=== PATIENT | female | born 1990 | race Caucasian/White ===

== ENCOUNTER 2017-10-20 18:43 | Emergency (ER) | payer OTHER ==
[2017-10-20 19:01] VITALS: TEMP 98.5
--- NOTE | 2017-10-20 19:07 | ED ---
General Adult HPI - General Chief complaint: Vaginal Bleeding Stated complaint: 7 weeks pg with spotting Time Seen by Provider: 10/20/17 19:03 Source: patient Mode of arrival: ambulatory Limitations: no limitations - History of Present Illness Initial comments: Stefania is a 27-year-old female proximately approximately 7 weeks who presents to the emergency department today for evaluation of vaginal spotting. Patient reports that she found she was a few weeks ago, she was previously being treated for a yeast infection with Diflucan which failed treatment she is now being treated with a vaginal suppository which she started last night. Patient reports that today she noted some vaginal spotting. Patient reports that in her previous [facility] which she carried to term she did not experience any vaginal bleeding during the so this became concerning for her. Patient does report a history of 3 elective abortions in the past, no spontaneous abortions. She denies any fevers, chills, chest pain, palpitations or shortness of breath. She does report occasional morning sickness with nausea and vomiting. However she states these are manageable and that she's been able to eat or drink. She does state that she has been taking her vitamins. She has established care with an OB but has not seen them for the first time yet. She is scheduled to see the OB in 2 weeks. - Related Data Home Medications Medication Instructions Recorded Confirmed [id number] Acid 1 cap PO HS 05/28/14 10/20/17 [-U Capsule (formulary)] Amoxicillin 875 mg PO Q12HR 10/20/17 10/20/17 Terconazole [Terazol 7] 1 applicator VAGINAL HS 10/20/17 10/20/17 Allergies Allergy/AdvReac Type Severity Reaction Status Date / Time No Known Allergies Allergy Verified 10/20/17 19:10 Review of Systems ROS Statement: Those systems with pertinent positive or pertinent negative responses have been documented in the HPI. ROS Other: All systems not noted in ROS Statement are negative. Constitutional: Denies: fever, chills ENT: Denies: throat pain Respiratory: Denies: cough, dyspnea Cardiovascular: Denies: chest pain, palpitations Endocrine: Denies: fatigue Gastrointestinal: Reports: nausea. Denies: abdominal pain, diarrhea, constipation Genitourinary: Reports: discharge, other (vaginal itching). Denies: urgency, dysuria, frequency Musculoskeletal: Denies: back pain Skin: Denies: rash Neurological: Denies: headache, weakness Psychiatric: Denies: anxiety, depression Hematological/Lymphatic: Denies: easy bleeding, easy bruising Past Medical History Past Medical History: No Reported History History of Any Multi-Drug Resistant Organisms: None Reported Past Surgical History: No Surgical Hx Reported Additional Past Surgical History / Comment(s): Dilation curettage 2 Past Anesthesia/Blood Transfusion Reactions: No Reported Reaction Past Psychological History: No Psychological Hx Reported Smoking Status: Current every day smoker Past Alcohol Use History: None Reported Past Drug Use History: None Reported General Exam Limitations: no limitations General appearance: alert, in no apparent distress Head exam: Present: atraumatic, normocephalic Eye exam: Present: normal appearance, PERRL ENT exam: Present: normal exam Neck exam: Present: normal inspection Respiratory exam: Present: normal lung sounds bilaterally, respiratory distress Cardiovascular Exam: Present: regular rate, normal rhythm GI/Abdominal exam: Present: soft, normal bowel sounds. Absent: distended, tenderness, guarding, rebound, rigid External exam: Present: normal external exam Speculum exam: Present: vaginal discharge, vaginal bleeding. Absent: cervical discharge, foreign body, tissue, laceration By manual exam: Present: cervical motion tenderness Back exam: Present: normal inspection Neurological exam: Present: alert, oriented X3 Psychiatric exam: Present: normal affect, normal mood Skin exam: Present: warm, dry Course Vital Signs 10/20/17 18:58 Temperature 98.5 F Pulse Rate 105 H Respiratory 20 Rate Blood Pressure 130/80 O2 Sat by Pulse 98 Oximetry - Reevaluation(s) Reevaluation #1: Patint was updated that she is positive for trichamonas, risks and benefits of treatment were discussed and patient agreed to treatment with 2 g of by mouth Flagyl. In addition the patient agreed to being treated for possible co- infections of gonorrhea or chlamydia with Rocephin and azithromycin. I advised the patient that she will be given multiple pills to take, I gave her jose crackers, putting and juice so that she does not have to take these on an empty stomach. 10/20/17 21:09 Medical Decision Making - Medical Decision Making She was seen and evaluated, history was obtained from the patient Multiple weeks of vaginal pruritus, failed outpatient therapy with over-the- counter Monistat, prescription Diflucan and now being treated with vaginal suppository for suspected yeast infection. Currently approximately 7 weeks with vaginal spotting Exam with scant vaginal discharge, some vaginal erythema. Exam is limited by the suppository cream that was placed in the vagina earlier. Labs reveal beta hCG greater than 3000, ultrasound reveals a single live intrauterine at 6 weeks gestation which is consistent with patient's expectations Blood Vaginal swab is positive for Trichomonas, she was updated on this. I advised the patient that I would recommend treatment for possible co-infections with gonorrhea and chlamydia. Patient is agreeable. At this time I will treat with IM Rocephin, no Flagyl and azithromycin. She was given jose crackers and indeed prior to taking the medications that she does not have to take them on an empty stomach. Patient was advised that she should not be sexually active with anybody for 7 days, she should follow-up with her OB for repeat testing. Her partner or partners need to be tested and treated as well. Patient expressed understanding of this. - Lab Data Result diagrams: 10/20/17 19:31 10/20/17 19:31 Lab Results 10/20/17 10/20/17 10/20/17 Range/Units 19:31 19:31 19:31 WBC 9.5 (3.8-10.6) k/uL RBC 4.00 (3.80-5.40) m/uL Hgb 12.6 (11.4-16.0) gm/dL Hct 36.5 (34.0-46.0) % MCV 91.2 (80.0-100.0) fL MCH 31.5 (25.0-35.0) pg MCHC 34.5 (31.0-37.0) g/dL RDW 12.2 (11.5-15.5) % Plt Count 258 (150-450) k/uL Neutrophils % 66 % Lymphocytes % 26 % Monocytes % 6 % Eosinophils % 1 % Basophils % 0 % Neutrophils # 6.2 (1.3-7.7) k/uL Lymphocytes # 2.4 (1.0-4.8) k/uL Monocytes # 0.5 (0-1.0) k/uL Eosinophils # 0.1 (0-0.7) k/uL Basophils # 0.0 (0-0.2) k/uL Sodium 138 (137-145) mmol/L Potassium 3.9 (3.5-5.1) mmol/L Chloride 105 (98-107) mmol/L Carbon Dioxide 26 (22-30) mmol/L Anion Gap 7 mmol/L BUN 8 (7-17) mg/dL Creatinine 0.70 (0.52-1.04) mg/dL Est GFR (MDRD) Af Amer >60 (>60 ml/min/1.73 sqM) Est GFR (MDRD) Non-Af >60 (>60 ml/min/1.73 sqM) Glucose 81 (74-99) mg/dL Calcium 9.2 (8.4-10.2) mg/dL HCG, Quant 3067.1 mIU/mL Urine Color Urine Appearance (Clear) Urine pH (5.0-8.0) Ur Specific [place] (1.001-1.035) Urine Protein (Negative) Urine Glucose (UA) (Negative) Urine Ketones (Negative) Urine Blood (Negative) Urine Nitrite (Negative) Urine Bilirubin (Negative) Urine Urobilinogen (<2.0) mg/dL Ur Leukocyte Esterase (Negative) Trichomonas Ag (Rapid) (Negative) Blood Type O Positive Blood Type Recheck No Antibody Screen NEGATIVE Spec Expiration Date 10/23/2017 - 233010/20/17 10/20/17 Range/Units 19:35 19:43 WBC (3.8-10.6) k/uL RBC (3.80-5.40) m/uL Hgb (11.4-16.0) gm/dL Hct (34.0-46.0) % MCV (80.0-100.0) fL MCH (25.0-35.0) pg MCHC (31.0-37.0) g/dL RDW (11.5-15.5) % Plt Count (150-450) k/uL Neutrophils % % Lymphocytes % % Monocytes % % Eosinophils % % Basophils % % Neutrophils # (1.3-7.7) k/uL Lymphocytes # (1.0-4.8) k/uL Monocytes # (0-1.0) k/uL Eosinophils # (0-0.7) k/uL Basophils # (0-0.2) k/uL Sodium (137-145) mmol/L Potassium (3.5-5.1) mmol/L Chloride (98-107) mmol/L Carbon Dioxide (22-30) mmol/L Anion Gap mmol/L BUN (7-17) mg/dL Creatinine (0.52-1.04) mg/dL Est GFR (MDRD) Af Amer (>60 ml/min/1.73 sqM) Est GFR (MDRD) Non-Af (>60 ml/min/1.73 sqM) Glucose (74-99) mg/dL Calcium (8.4-10.2) mg/dL HCG, Quant mIU/mL Urine Color Yellow Urine Appearance Clear (Clear) Urine pH 7.0 (5.0-8.0) Ur Specific [place] 1.012 (1.001-1.035) Urine Protein Negative (Negative) Urine Glucose (UA) Negative (Negative) Urine Ketones Negative (Negative) Urine Blood Negative (Negative) Urine Nitrite Negative (Negative) Urine Bilirubin Negative (Negative) Urine Urobilinogen 3.0 (<2.0) mg/dL Ur Leukocyte Esterase Negative (Negative) Trichomonas Ag (Rapid) Positive H (Negative) Blood Type Blood Type Recheck Antibody Screen Spec Expiration Date Disposition Clinical Impression: Vaginal bleeding in , Trichomonas vaginalis (TV) infection Disposition: HOME SELF-CARE Condition: Good Instructions: Threatened Miscarriage (ED), Sexually Transmitted Diseases (ED), Trichomoniasis (ED) Referrals: Jack Everett DO [Primary Care Provider] - 1-2 days Time of Disposition: 21:40
[2017-10-20 19:42] LABS: Basophils % (A) 0 %; CH 31.9; CHCM 35.1; Eosinophils # (A) 0.1 k/uL (0-0.7); Eosinophils % (A) 1 %; HCT 36.5 % (34.0-46.0); HDW 2.54; HGB 12.6 gm/dL (11.4-16.0); Luc # (Auto) 0.15; Luc % (Auto) 2; Lymphocytes # (A) 2.4 k/uL (1.0-4.8); Lymphocytes % (A) 26 %; MCH 31.5 pg (25.0-35.0); MCHC 34.5 g/dL (31.0-37.0); MCV 91.2 fL (80.0-100.0); Mean Platelet Volume 7.1; Monocytes # (A) 0.5 k/uL (0-1.0); Monocytes % (A) 6 %; Neutrophils # (A) 6.2 k/uL (1.3-7.7); Neutrophils % (A) 66 %; RDW 12.2 % (11.5-15.5); WBC 9.5 k/uL (3.8-10.6); WBC (Perox) 9.43
[2017-10-20 19:54] LABS: Anion Gap 7 mmol/L; Blood Urea Nitrogen 8 mg/dL (7-17); Calcium 9.2 mg/dL (8.4-10.2); Carbon Dioxide 26 mmol/L (22-30); Chloride 105 mmol/L (98-107); Glucose 81 mg/dL (74-99); Non-African American GFR(MDRD) >60 (>60 ml/min/1.73 sqM); Potassium 3.9 mmol/L (3.5-5.1); Sodium 138 mmol/L (137-145)
[2017-10-20 20:02] LABS: Appearance,Urine Clear (Clear); Bilirubin,Urine Negative (Negative); Glucose,Urine (UA) Negative (Negative); Ketones,Urine Negative (Negative); Leukocyte Esterase,Urine Negative (Negative); Nitrite,Urine Negative (Negative); Protein,Urine Negative (Negative); Specific Gravity,Urine 1.012 (1.001-1.035); UA Billing (MACRO vs. MICRO) CHEM
--- NOTE | 2017-10-20 20:24 | US ---
EXAMINATION TYPE: US OB <= 14 wk transvag DATE OF EXAM: 10/20/2017 COMPARISON: NONE CLINICAL HISTORY: pain/ cramping with vaginal bleeding (spotting). Recently being treated for yeast infection. EXAM PERFORMED: Transvaginal (TV) and Transabdominal (TA) EXAM MEASUREMENTS: GESTATIONAL AGE / DATING Physician Established: Not yet established Dates by LMP: . (7 weeks/3 days) EDC: 06/05/2018 Dates by First Scan: No previous this is first scan Dates by Current Scan for: (6 weeks/0 days) EDC: 06/15/2018 MATERNAL ANATOMY Uterus: 8.2 x 5.0 x 6.2 cm; Anteverted, appears wnl Right Ovary: 3.1 x 1.9 x 1.9 cm; appears to have complex area with peripheral flow measuring 2.2 x 1.7 x 1.8 cm Left Ovary: 2.6 x 1.8 x 1.5 cm; appears wnl Post CDS / Adnexa: Appears to have traces of fluid near cervix Presence of free fluid: Appears to have traces of fluid near cervix Presence of corpus luteal cyst: Right ovary measuring approximately 2.2 x 1.7 x 1.8 cm Presence of subchorionic bleed: No GESTATION / SURVEY CRL: 0.4 cm (6 weeks/0 days) MSD: 0.8 cm (OOR ) Yolk Sac (normal less than 6mm): 2 mm Heart Rate: 130 bpm Rhythm: Normal IUP: Viable IUP Date of LMP: 08/29/2017 IMPRESSION: The ultrasound gestational age is 6 weeks. I see no comping process. MTDD
[2017-10-20] MEDS ORDERED: cefTRIAXone 1,000 MG VIAL (IM USE) IM STA (21:02)
[2017-10-20] MEDS ORDERED: metroNIDAZOLE 500 MG TAB PO STA (21:02)
[2017-10-20] MEDS ORDERED: AZITHROMYCIN 500 MG TAB PO STA (21:03)
[2017-10-20] MEDS ORDERED: cefTRIAXone 250 MG VIAL IM STA (21:26)
[2017-10-20 21:46] VITALS: BP 110/56; PULSE 87; RESP 18
== END 2017-10-20 22:10 | disposition home or self-care (01) ==
LOC: EC 18:43
DX: O98.311 Other infections with a predominantly sexual mode of transmission complicating pregnancy, first trimester (principal); A59.01 Trichomonal vulvovaginitis; O20.9 Hemorrhage in early pregnancy, unspecified; Z3A.01 Less than 8 weeks gestation of pregnancy; O99.331 Smoking (tobacco) complicating pregnancy, first trimester; F17.200 Nicotine dependence, unspecified, uncomplicated; Z79.899 Other long term (current) drug therapy
CPT/HCPCS: 36415; 86900; 86901; 80048; 87591; 87491; 85025; 86850; 81003; 84702; 87808; 87070; 87086; 87205; 76801; 99284; 96372; J0696; 76817

== ENCOUNTER 2017-12-29 10:56 | Emergency (ER) | payer BC ==
[2017-12-29 11:06] VITALS: RESP 18
--- NOTE | 2017-12-29 11:41 | ED ---
General Adult HPI - General Chief complaint: Back Pain/Injury Stated complaint: Back pain Time Seen by Provider: 12/29/17 11:31 Source: patient, RN notes reviewed Mode of arrival: ambulatory Limitations: no limitations - History of Present Illness Initial comments: Patient's a 27-year-old female who presents emergency room today with chief complaint of some left-sided back pain that started last night when she was going to bed. She does not that today she was at work felt some chills. States she checked her temperature had a low-grade temp took some ibuprofen. She does not that she's noticed a stronger odor with the urine. She denies any pain. States back pain is not worse with movements. Denies any injury or trauma. Denies any other complaints or symptoms. Patient denies any recent fever, chills, shortness of breath, chest pain, abdominal pain, nausea or vomiting, numbness or tingling, dysuria or hematuria, constipation or diarrhea, headaches or visual changes, or any other complaints. - Related Data Previous Rx's Medication Instructions Recorded Acetaminophen-Codeine 300-30mg 1 - 2 tab PO Q4H PRN #40 tablet 11/11/17 [Tylenol #3] Ibuprofen [Motrin] 600 mg PO Q6HR PRN #40 tab 11/11/17 Ciprofloxacin HCl [Cipro] 500 mg PO Q12HR #20 day 12/29/17 Allergies Allergy/AdvReac Type Severity Reaction Status Date / Time No Known Allergies Allergy Verified 12/29/17 11:06 Review of Systems ROS Statement: Those systems with pertinent positive or pertinent negative responses have been documented in the HPI. ROS Other: All systems not noted in ROS Statement are negative. Past Medical History Past Medical History: No Reported History History of Any Multi-Drug Resistant Organisms: None Reported Past Surgical History: No Surgical Hx Reported Additional Past Surgical History / Comment(s): Elective 2, wisdom teeth removed Past Anesthesia/Blood Transfusion Reactions: Previous Problems w/ Anesthesia Additional Past Anesthesia/Blood Transfusion Reaction / Comment(s): states woke up crying and very confused Past Psychological History: No Psychological Hx Reported Smoking Status: Current every day smoker Past Alcohol Use History: Rare Past Drug Use History: None Reported - Past Family History Mother Family Medical History: Cancer General Exam - General Exam Comments Initial Comments: General: The patient is awake and alert, in no distress, and does not appear acutely ill. Eye: Pupils are equal, round and reactive to light, extra-ocular movements are intact. No nystagmus. There is normal conjunctiva bilaterally. No signs of icterus. Ears, nose, mouth and throat: There are moist mucous membranes and no oral lesions. Neck: The neck is supple, there is no tenderness or JVD. Cardiovascular: There is a regular rate and rhythm. No murmur, rub or gallop is appreciated. Respiratory: Lungs are clear to auscultation, respirations are non-labored, breath sounds are equal. No wheezes, stridor, rales, or rhonchi. Gastrointestinal: Soft, non-distended, non-tender abdomen without masses or organomegaly noted. There is no rebound or guarding present. No CVA tenderness. Bowel sounds are unremarkable. Musculoskeletal: Normal ROM, no tenderness. Strength 5/5. Sensation intact. Pulses equal bilaterally 2+. Neurological: A&O x 3. CN II-XII intact, There are no obvious motor or sensory deficits. Coordination appears grossly intact. Speech is normal. Skin: Skin is warm and dry and no rashes or lesions are noted. Psychiatric: Cooperative, appropriate mood & affect, normal judgment. Limitations: no limitations Course Vital Signs 12/29/17 11:04 Temperature 99.2 F Pulse Rate 111 H Respiratory 18 Rate Blood Pressure 103/55 O2 Sat by Pulse 98 Oximetry Medical Decision Making - Medical Decision Making Patient's urinalysis reviewed and does show evidence for urinary tract infection. Patient will be given a shot of Rocephin here in emergency room. Patient's vitals are stable. No fever here in emergency room. Patient advised to return if symptoms increase or worsen. Advised follow-up the family doctor for repeat urinalysis. Patient states understanding and is in agreement. - Lab Data Lab Results 12/29/17 12/29/17 Range/Units 11:45 11:45 Urine Color Yellow Urine Appearance Cloudy H (Clear) Urine pH 6.5 (5.0-8.0) Ur Specific [place] 1.014 (1.001-1.035) Urine Protein 1+ H (Negative) Urine Glucose (UA) Negative (Negative) Urine Ketones Negative (Negative) Urine Blood Moderate H (Negative) Urine Nitrite Positive H (Negative) Urine Bilirubin Negative (Negative) Urine Urobilinogen <2.0 (<2.0) mg/dL Ur Leukocyte Esterase Large H (Negative) Urine RBC 6 H (0-5) /hpf Urine WBC >182 H (0-5) /hpf Ur Squamous Epith Cells 1 (0-4) /hpf Amorphous Sediment Few H (None) /hpf Urine Bacteria Rare H (None) /hpf Urine Mucus Moderate H (None) /hpf Urine HCG, Qual Not Detected (Not Detectd) Disposition Clinical Impression: Urinary tract infection Disposition: HOME SELF-CARE Condition: Good Instructions: Urinary Tract Infection in Women (ED) Additional Instructions: Please use medication as discussed. Please follow-up with family doctor in the next 2 days of symptoms have not improved. Please return to emergency room if the symptoms increase or worsen or for any other concerns. Prescriptions: Ciprofloxacin HCl [Cipro] 500 mg PO Q12HR #20 day Referrals: Jack Everett DO [Primary Care Provider] - 1-2 days Time of Disposition: 12:14
[2017-12-29 12:05] LABS: Amorphous Sediment,Urine Few /hpf; Appearance,Urine Cloudy (Clear); Bacteria,Urine Rare /hpf; Bilirubin,Urine Negative (Negative); Blood,Urine Moderate (Negative); Color,Urine Yellow; Glucose,Urine (UA) Negative (Negative); Ketones,Urine Negative (Negative); Leukocyte Esterase,Urine Large (Negative); Mucus,Urine Moderate /hpf; Nitrite,Urine Positive (Negative); PH, Urine 6.5 (5.0-8.0); Protein,Urine 1+ (Negative); RBC,Urine 6 /hpf (0-5); Specific Gravity,Urine 1.014 (1.001-1.035); Squamous Epithelial Cell,Urine 1 /hpf (0-4); Urobilinogen,Urine <2.0 mg/dL (<2.0); WBC,Urine >182 /hpf (0-5)
[2017-12-29] MEDS ORDERED: cefTRIAXone 1,000 MG VIAL (IM USE) IM STA (12:13)
[2017-12-29 12:45] VITALS: BP 104/55; PULSE 97; TEMP 98.5
== END 2017-12-29 12:45 | disposition home or self-care (01) ==
LOC: EC 10:56
DX: N39.0 Urinary tract infection, site not specified (principal); F17.200 Nicotine dependence, unspecified, uncomplicated
CPT/HCPCS: 81001; 81025; 87086; 99283; 96372; J0696; 87077; 87186

== ENCOUNTER 2018-01-20 07:16 | Emergency (ER) | payer BC ==
[2018-01-20 07:19] VITALS: RESP 18; TEMP 98.3
[2018-01-20 07:54] LABS: Appearance,Urine Clear (Clear); Bilirubin,Urine Negative (Negative); Blood,Urine Trace (Negative); Color,Urine Light Yellow; Glucose,Urine (UA) Negative (Negative); Ketones,Urine Negative (Negative); Leukocyte Esterase,Urine Negative (Negative); Mucus,Urine Rare /hpf; Nitrite,Urine Negative (Negative); Protein,Urine Negative (Negative); RBC,Urine 2 /hpf (0-5); Specific Gravity,Urine 1.006 (1.001-1.035); Squamous Epithelial Cell,Urine <1 /hpf (0-4); Urobilinogen,Urine <2.0 mg/dL (<2.0); WBC,Urine 3 /hpf (0-5)
[2018-01-20 08:06] LABS: ALT 109 U/L (9-52); AST 33 U/L (14-36); Albumin 4.4 g/dL (3.5-5.0); Alkaline Phosphatase 72 U/L (38-126); Anion Gap 12 mmol/L; Blood Urea Nitrogen 11 mg/dL (7-17); Calcium 9.8 mg/dL (8.4-10.2); Carbon Dioxide 25 mmol/L (22-30); Chloride 104 mmol/L (98-107); Glucose 110 mg/dL (74-99); Potassium 3.8 mmol/L (3.5-5.1); Sodium 141 mmol/L (137-145); Total Bilirubin 0.2 mg/dL (0.2-1.3)
[2018-01-20] MEDS ORDERED: cefTRIAXone 250 MG VIAL IM STA (08:06)
[2018-01-20] MEDS ORDERED: AZITHROMYCIN 500 MG TAB PO STA (08:06)
[2018-01-20] MEDS ORDERED: metroNIDAZOLE 500 MG TAB PO STA (08:06)
--- NOTE | 2018-01-20 08:13 | ED ---
Female Urogenital HPI - General Chief complaint: Urogenital Stated complaint: Female gu Time Seen by Provider: 01/20/18 07:20 Source: patient Mode of arrival: ambulatory Limitations: no limitations - History of Present Illness Initial comments: This is a 27-year-old female who presents emergency department for STD exposure. The patient states that her and her boyfriend were involved with a 3 similar thing other female. There are updated that the patient may have contracted a sexual transmitted disease and possible hepatitis C. She is unsure of the sexual transmitted disease however. She was concerned because of the exposure. She does admit to a slightly increased amount of vaginal discharge that she describes as white however no other symptoms. No vaginal pain. No pelvic pain. No fevers or chills. No joint aching. No other complaints at this time. Last Menstrual Period: 12/25/17 - Related Data Previous Rx's Medication Instructions Recorded Ibuprofen [Motrin] 600 mg PO Q6HR PRN #40 tab 11/11/17 Ciprofloxacin HCl [Cipro] 500 mg PO Q12HR #20 day 12/29/17 Allergies Allergy/AdvReac Type Severity Reaction Status Date / Time No Known Allergies Allergy Verified 01/20/18 07:19 Review of Systems ROS Statement: Those systems with pertinent positive or pertinent negative responses have been documented in the HPI. ROS Other: All systems not noted in ROS Statement are negative. Past Medical History Past Medical History: No Reported History History of Any Multi-Drug Resistant Organisms: None Reported Past Surgical History: No Surgical Hx Reported Additional Past Surgical History / Comment(s): Elective 2, wisdom teeth removed Past Anesthesia/Blood Transfusion Reactions: Previous Problems w/ Anesthesia Additional Past Anesthesia/Blood Transfusion Reaction / Comment(s): states woke up crying and very confused Past Psychological History: No Psychological Hx Reported Smoking Status: Current every day smoker Past Alcohol Use History: Rare Past Drug Use History: None Reported - Past Family History Mother Family Medical History: Cancer General Exam - General Exam Comments Initial Comments: Constitutional: Awake alert Appears comfortable Head: Normocephalic atraumatic Eyes: no conjunctival injection No scleral icterus EOMI Neck: No JVD Supple Heart: Regular rate rhythm normal S1-S2 no murmurs Lungs: Clear to auscultation bilaterally No wheezing No rales Abdomen: Soft nondistended nontender : The patient deferred and stated she did not want a pelvic exam Extremities: Non edematous DP pulses intact Radial pulses intact Neuro: A&Ox3 No focal neurologic deficits Psych: Appropriate mood and affect Limitations: no limitations Course Vital Signs 01/20/18 01/20/18 07:17 08:31 Temperature 98.3 F Pulse Rate 108 H 103 H Respiratory 18 18 Rate Blood Pressure 125/74 128/66 O2 Sat by Pulse 100 97 Oximetry Medical Decision Making - Medical Decision Making Is a 27-year-old female who presents emergency department for STD exposure. She had a urine sample performed that was unremarkable. LFTs were unremarkable as well. Urine chlamydia and gonorrhea were sent. Were unable to obtain a Trichomonas sample because the patient declined pelvic examination. She opted for treatment of sexually transmitted diseases. The patient was given Rocephin , azithromycin, and metronidazole. Was told that someone would call for positive result. Otherwise she could call in for results as well. Return if she has worsening symptoms. No sex for 3 weeks. - Lab Data Result diagrams: 01/20/18 07:40 Lab Results 01/20/18 01/20/18 01/20/18 Range/Units 07:40 07:40 07:40 Sodium 141 (137-145) mmol/L Potassium 3.8 (3.5-5.1) mmol/L Chloride 104 (98-107) mmol/L Carbon Dioxide 25 (22-30) mmol/L Anion Gap 12 mmol/L BUN 11 (7-17) mg/dL Creatinine 0.70 (0.52-1.04) mg/dL Est GFR (MDRD) Af Amer >60 (>60 ml/min/1.73 sqM) Est GFR (MDRD) Non-Af >60 (>60 ml/min/1.73 sqM) Glucose 110 H (74-99) mg/dL Calcium 9.8 (8.4-10.2) mg/dL Total Bilirubin 0.2 (0.2-1.3) mg/dL AST 33 (14-36) U/L ALT 109 H (9-52) U/L Alkaline Phosphatase 72 (38-126) U/L Total Protein 7.0 (6.3-8.2) g/dL Albumin 4.4 (3.5-5.0) g/dL Urine Color Light Yellow Urine Appearance Clear (Clear) Urine pH 7.0 (5.0-8.0) Ur Specific [place] 1.006 (1.001-1.035) Urine Protein Negative (Negative) Urine Glucose (UA) Negative (Negative) Urine Ketones Negative (Negative) Urine Blood Trace H (Negative) Urine Nitrite Negative (Negative) Urine Bilirubin Negative (Negative) Urine Urobilinogen <2.0 (<2.0) mg/dL Ur Leukocyte Esterase Negative (Negative) Urine RBC 2 (0-5) /hpf Urine WBC 3 (0-5) /hpf Ur Squamous Epith Cells <1 (0-4) /hpf Urine Mucus Rare H (None) /hpf Urine HCG, Qual Not Detected (Not Detectd) Disposition Clinical Impression: STD exposure Disposition: HOME SELF-CARE Condition: Stable Instructions: Sexually Transmitted Diseases (ED) Referrals: Jack Everett DO [Primary Care Provider] - 1-2 days
[2018-01-20 08:32] VITALS: BP 128/66; PULSE 103
[2018-01-21 15:53] LABS: Chlamydia trachomatis rRNA DETECTED (Not detected); Neisseria gonorrhoeae rRNA Not detected (Not detected)
== END 2018-01-20 08:31 | disposition home or self-care (01) ==
LOC: EC 07:16
DX: Z20.2 Contact with and (suspected) exposure to infections with a predominantly sexual mode of transmission (principal); F17.200 Nicotine dependence, unspecified, uncomplicated
CPT/HCPCS: 36415; 86803; 80053; 87591; 87491; 81001; 81025; 99283; 96372; J0696

== ENCOUNTER 2018-03-01 17:58 | Emergency (ER) | payer BC ==
[2018-03-01] MEDS ORDERED: RX INFO: IV CONTRAST WAS GIVEN 1 EACH MISC MISCELLANE PRN (18:18)
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
[2018-03-01 18:54] LABS: Amorphous Sediment,Urine Occasional /hpf; Appearance,Urine Cloudy (Clear); Bilirubin,Urine Negative (Negative); Blood,Urine Negative (Negative); Color,Urine Yellow; Glucose,Urine (UA) Negative (Negative); Ketones,Urine Negative (Negative); Leukocyte Esterase,Urine Negative (Negative); Mucus,Urine Rare /hpf; Nitrite,Urine Negative (Negative); PH, Urine 6.5 (5.0-8.0); Protein,Urine Negative (Negative); Specific Gravity,Urine 1.016 (1.001-1.035); Squamous Epithelial Cell,Urine <1 /hpf (0-4); WBC,Urine 1 /hpf (0-5)
[2018-03-01 19:01] LABS: Basophils % (A) 0 %; Eosinophils # (A) 0.2 k/uL (0-0.7); Eosinophils % (A) 3 %; HCT 42.9 % (34.0-46.0); HGB 13.7 gm/dL (11.4-16.0); Lymphocytes # (A) 2.3 k/uL (1.0-4.8); Lymphocytes % (A) 30 %; MCH 29.1 pg (25.0-35.0); Mean Platelet Volume 7.4; Monocytes # (A) 0.6 k/uL (0-1.0); Monocytes % (A) 8 %; Neutrophils # (A) 4.3 k/uL (1.3-7.7); Neutrophils % (A) 57 %; Platelet Count 274 k/uL (150-450); RBC 4.71 m/uL (3.80-5.40); RDW 13.6 % (11.5-15.5); WBC 7.7 k/uL (3.8-10.6)
[2018-03-01 19:10] LABS: Partial Thromboplastin Time 27.8 sec (22.0-30.0); Prothrombin Time 9.9 sec (9.0-12.0)
[2018-03-01 19:17] LABS: ALT 728 U/L (9-52); AST 353 U/L (14-36); Albumin 3.8 g/dL (3.5-5.0); Alkaline Phosphatase 161 U/L (38-126); Anion Gap 12 mmol/L; Blood Urea Nitrogen 10 mg/dL (7-17); Calcium 9.6 mg/dL (8.4-10.2); Carbon Dioxide 28 mmol/L (22-30); Chloride 99 mmol/L (98-107); Glucose 105 mg/dL (74-99); Potassium 4.2 mmol/L (3.5-5.1); Sodium 139 mmol/L (137-145); Total Bilirubin 2.2 mg/dL (0.2-1.3); Total Protein 6.6 g/dL (6.3-8.2)
--- NOTE | 2018-03-01 19:38 | XR ---
EXAMINATION TYPE: XR ribs LT w pa chest xray DATE OF EXAM: 03/01/2018 COMPARISON: NONE HISTORY: Left-sided rib pain TECHNIQUE: 5 views FINDINGS: Heart and mediastinum are normal. Lungs are clear of infiltrate. There is no sign of pleura l effusion or pneumothorax. There are nondisplaced fractures of the left eighth ninth and 10th ribs. IMPRESSION: Acute multiple left rib fractures. Normal heart.
[2018-03-01 19:41] LABS: Amylase 52 U/L (30-110); Lipase 47 U/L (23-300)
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
[2018-03-01 21:19] LABS: Hepatitis A AB IgM Index 0.01; Hepatitis A Antibody IgM NEGATIVE
[2018-03-01 21:20] LABS: Amphetamine Screen,Urine Detected (NotDetected); Barbiturate Screen,Urine Not Detected (NotDetected); Benzodiazepines Screen,Urine Not Detected (NotDetected); Cocaine Screen,Urine Not Detected (NotDetected); Methadone Screen, Urine Not Detected (NotDetected); Opiate Screen,Urine Not Detected (NotDetected); Oxycodone Screen, Urine Not Detected (NotDetected); Phencyclidine Screen,Urine Not Detected (NotDetected); Tricyclic Antidepressant,Urine Not Detected (NotDetected); Urn Cannabinoid Scrn Detected (NotDetected)
[2018-03-01] MEDS ORDERED: SODIUM CHLORIDE 0.9% 1,000 ML IV ONE (22:16)
[2018-03-01] MEDS ORDERED: MORPHINE SULFATE/PF 10MG/10ML VL IVP STA (22:56)
[2018-03-01 23:06] LABS: Hepatitis B Core IgM Non-Reactive (Non-Reactive)
--- NOTE | 2018-03-01 23:41 | US ---
EXAMINATION TYPE: US abdomen limited DATE OF EXAM: 03/01/2018 COMPARISON: NONE CLINICAL HISTORY: Elevated Liver Enzymes; Hyperbilirubinemai. Pt c/o left sided pain due to 3 broken ribs. EXAM MEASUREMENTS: Liver Length: 14.5 cm Gallbladder Wall: 0.3 cm CBD: 0.2 cm Right Kidney: 10.7 x 3.6 x 4.9 cm Limited due to bowel gas, pt eating prior to exam, and inability to roll complete LLD due to pt broke n ribs on left side. Pancreas: wnl Liver: wnl Gallbladder: echogenic foci seen within gb ?cholelithiasis versus polyps Evidence for sonographic Raymond's sign: No CBD: wnl Right Kidney: Slightly dilated right renal pelvis IMPRESSION: Multiple small gallstones. No dilated ducts.
[2018-03-01 23:51] VITALS: BP 113/65; PULSE 85; RESP 16; TEMP 97.9
== END 2018-03-01 23:57 | disposition home or self-care (01) ==
LOC: EC 17:58
DX: S22.42XA Multiple fractures of ribs, left side, initial encounter for closed fracture (principal); K75.9 Inflammatory liver disease, unspecified; E80.6 Other disorders of bilirubin metabolism; K80.80 Other cholelithiasis without obstruction; R05 Cough; F17.200 Nicotine dependence, unspecified, uncomplicated; Y09 Assault by unspecified means; Y92.009 Unspecified place in unspecified non-institutional (private) residence as the place of occurrence of the external cause
CPT/HCPCS: 36415; 80053; 80074; 82150; 83690; 85025; 85610; 85730; 81001; 81025; 80306; 71101; 76705; 74177; 99284; 96374; 96361; Q9967; J2270

== ENCOUNTER 2018-04-09 14:18 | Emergency (ER) | payer BC, OTHER ==
[2018-04-09 14:36] VITALS: RESP 18
[2018-04-09] MEDS ORDERED: ONDANSETRON ODT 4 MG TAB PO STA (15:25)
[2018-04-09] MEDS ORDERED: LORazepam 1 MG TAB PO STA (15:25)
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
[2018-04-09 17:18] VITALS: BP 137/78; PULSE 77; TEMP 98.3
== END 2018-04-09 17:00 | disposition home or self-care (01) ==
LOC: EC 14:18
DX: F41.9 Anxiety disorder, unspecified (principal); F30.9 Manic episode, unspecified; R45.6 Violent behavior; S00.11XD Contusion of right eyelid and periocular area, subsequent encounter; F17.200 Nicotine dependence, unspecified, uncomplicated; Y09 Assault by unspecified means
CPT/HCPCS: 82075; 99284

== ENCOUNTER → 2019-03-18 | Outpatient (CLI) | payer OTHER ==
[2019-03-18 14:08] LABS: Glucose 3 Hour, Gest 99 mg/dL
== END ==
LOC: LABWHC1 08:52
PROVIDERS: ATTEND Obstetrics & Gynecology
DX: O99.810 Abnormal glucose complicating pregnancy (principal); Z3A.00 Weeks of gestation of pregnancy not specified
CPT/HCPCS: 36415; 82951; 82952

== ENCOUNTER → 2019-12-30 | Outpatient (CLI) | payer OTHER ==
--- NOTE | 2019-12-30 09:12 | US ---
EXAMINATION TYPE: US abdomen complete DATE OF EXAM: 12/30/2019 COMPARISON: CT dated 03/01/2019 CLINICAL HISTORY: R94.5 abn results of liver func. elevated liver enzymes, nausea, LUQ pain EXAM MEASUREMENTS: Liver Length: 14.9 cm Gallbladder Wall: 0.3 cm CBD: 0.3 cm Spleen: 9.4 cm Right Kidney: 10.4 x 3.9 x 5.5 cm Left Kidney: 10.7 x 4.8 x 4.8 cm Pancreas: wnl Liver: wnl Gallbladder: appears filled with stones versus adjacent bowel when correlated with the prior CT of 2 018. Evidence for sonographic Raymond's sign: yes CBD: wnl Spleen: wnl Right Kidney: no evidence of hydronephrosis or mass Left Kidney: no evidence of hydronephrosis or mass Upper IVC: wnl Abd Aorta: wnl The liver is homogenous. The intrahepatic portion of the IVC and proximal abdominal aorta are within normal limits. Common bile duct is unremarkable. The visualized portions of the pancreas are homoge nous. The spleen is unremarkable. Kidneys are symmetric and free of hydronephrosis. No renal lesio ns are seen. IMPRESSION: 1. Liver is homogeneous sonographically despite elevated liver enzymes. 2. The gallbladder appears filled with gallstones, however when correlated with the prior CT, finding s may represent debris filled bowel and contracted nonvisualized gallbladder. The patient describes a positive sonographic Raymond sign and therefore HIDA scan could be considered despite the possible ch olelithiasis.
== END | disposition home or self-care (01) ==
LOC: RADUSWWP 07:34
PROVIDERS: ATTEND Nurse Practitioner Family
DX: K80.20 Calculus of gallbladder without cholecystitis without obstruction (principal); R74.8 Abnormal levels of other serum enzymes
CPT/HCPCS: 76700

== ENCOUNTER → 2021-02-16 | Outpatient (CLI) | payer OTHER ==
--- NOTE | 2021-02-16 16:30 | US ---
EXAMINATION TYPE: US liver DATE OF EXAM: 02/16/2021 COMPARISON: NONE CLINICAL HISTORY: B18.2 Chronic viral hepatitis C. needs US prior to starting treatment for Hep C, no symptoms, cholecystectomy EXAM MEASUREMENTS: Liver Length: 14.6 cm Gallbladder Wall: Surgically absent CBD: 0.5 cm Right Kidney: 10.7 x 5.0 x 4.7 cm Pancreas: wnl Liver: wnl Gallbladder: Surgically absent Evidence for sonographic Raymond's sign: no CBD: wnl Right Kidney: wnl IMPRESSION: There may be a lymph node anterior to the pancreas at the level of the head of the pancre as measuring 1.6 x 0.5 x 1.7 cm. If additional evaluation would be of benefit, CT could be performed. 2. No suspicious masses within the liver
== END ==
LOC: RADUSWWP 09:39
PROVIDERS: ATTEND Internal Medicine Gastroenterology
DX: B18.2 Chronic viral hepatitis C (principal)
CPT/HCPCS: 76705

== ENCOUNTER → 2021-05-24 | Outpatient (CLI) | payer OTHER ==
--- NOTE | 2021-05-25 08:38 | CT ---
EXAMINATION TYPE: CT abdomen w con DATE OF EXAM: 05/24/2021 COMPARISON: 03/01/2018 ultrasound 02/16/2021 HISTORY: 30 year-old female R93.2, abnormal abdominal US TECHNIQUE: Contiguous axial scanning of the abdomen following administration of 100 ml Omnipaque 300 IV contrast. Delayed images through the kidneys and coronal/sagittal reconstructions performed. CT DLP: 549 mGycm Automated exposure control for dose reduction was used. FINDINGS: Heart normal size without pericardial effusion. Lung bases clear without pleural effusion. Liver normal size at 14.5 cm. No focal lesion is seen. Portal venous system is patent. No biliary thuy amy dilatation. Ultrasound demonstrated an oval nodular area measuring 1.7 x 1.6 x 0.5 cm near the marcelo hepatic ralph on and head of the pancreas. In the marcelo hepatic region, there is a 2.8 x 1.2 cm oval density, axial image 19 that does not have a clear correlate on coronal or sagittal series. Findings suggest partial volume averaging through pa rt of the caudate lobe. No obvious corresponding peripancreatic or marcelo hepatis lymphadenopathy is i dentified. Cholecystectomy clips. Adrenal glands, kidneys, spleen, and pancreas within normal limits. No dilated small bowel, free fluid, free air. No mesenteric or retroperitoneal lymphadenopathy otherw ise identified. Suspect visualization of portions of a normal appendix. Scattered [id number] stool. Mild circum ferential wall thickening of the transverse colon likely due to nondistention. Pelvis not imaged. Bones: No osseous destructive process. IMPRESSION: 1. A 2.8 X 1.2 CM OVAL DENSITY IN THE MARCELO HEPATIC REGION DOES NOT HAVE A CLEAR CORRELATE ON CORONAL OR SAGITTAL SERIES. THIS LIKELY REFLECTS PARTIAL VOLUME AVERAGING THROUGH A PART OF THE CAUDATE LOBE DESPITE ITS CORRELATION TO THE LOCATION OF THE QUESTIONED LYMPH NODE ON THE PATIENT'S 02/16/2021 ULTR ASOUND. RECOMMEND 3 MONTH FOLLOW-UP ULTRASOUND TO REASSESS THIS AREA. 2. NO DEFINITE SUSPICIOUS LYMPHADENOPATHY OR MASSES IDENTIFIED.
== END | disposition home or self-care (01) ==
LOC: RADCTMAIN 16:21
PROVIDERS: ATTEND Internal Medicine Gastroenterology
DX: R93.2 Abnormal findings on diagnostic imaging of liver and biliary tract (principal)
CPT/HCPCS: 74160; Q9967

== ENCOUNTER → 2021-08-25 | Outpatient (CLI) | payer OTHER ==
--- NOTE | 2021-08-25 07:45 | US ---
EXAMINATION TYPE: US liver DATE OF EXAM: 08/25/2021 COMPARISON: NONE CLINICAL HISTORY: R93.2 Abnormal findings on diagnostic imaging of. EXAM MEASUREMENTS: Liver Length: 11.6 cm Gallbladder Wall: Surgically absent CBD: 0.3 cm Right Kidney: 9.6 x 4.3 x 5.0 cm Pancreas: probable lymph node again noted adjacent to pancreatic head measuring 1.3 x 0.3 x 0.9cm Liver: wnl Gallbladder: Surgically absent Evidence for sonographic Raymond's sign: no CBD: wnl Right Kidney: wnl IMPRESSION: No significant abnormality seen.
== END | disposition home or self-care (01) ==
LOC: RADUSWWP 07:10
PROVIDERS: ATTEND Internal Medicine Gastroenterology
DX: R93.2 Abnormal findings on diagnostic imaging of liver and biliary tract (principal); Z90.49 Acquired absence of other specified parts of digestive tract
CPT/HCPCS: 76705